=== PATIENT | female | born 1995 | race Caucasian/White ===

== ENCOUNTER 2020-10-18 17:45 | Emergency (ER) | payer OTHER ==
--- NOTE | 2020-10-18 17:51 | ED ---
General Adult HPI - General Stated complaint: [facility] - needlestick Time Seen by Provider: 10/18/20 17:47 Source: patient, RN notes reviewed Mode of arrival: ambulatory Limitations: no limitations - History of Present Illness Initial comments: This is a 25-year-old female presents emergency Department chief complaint of accidental needlestick. 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 Patient accidentally poked her left hand index finger. Her tetanus is up-to-date. There is moderate amount of blood. Patient did wash her hand. Patient has no other complaints is no reported history of the patient having HIV or hepatitis. Review of Systems ROS Statement: Those systems with pertinent positive or pertinent negative responses have been documented in the HPI. ROS Other: All systems not noted in ROS Statement are negative. General Exam General appearance: alert, in no apparent distress Head exam: Present: atraumatic, normocephalic, normal inspection Respiratory exam: Present: normal lung sounds bilaterally. Absent: respiratory distress, wheezes, rales, rhonchi, stridor Cardiovascular Exam: Present: regular rate, normal rhythm, normal heart sounds. Absent: systolic murmur, diastolic murmur, rubs, gallop, clicks Extremities exam: Present: other (Small puncture wound left hand index finger) Medical Decision Making - Medical Decision Making Patient had rapid HIV and hepatitis drawn. Patient has low risk prophylaxis was offered patient declined. Disposition Clinical Impression: Needlestick injury accident Disposition: HOME SELF-CARE Condition: Stable Instructions (If sedation given, give patient instructions): Needle Stick Injuries (ED) Additional Instructions: Please return to the Emergency Department if symptoms worsen or any other concerns. Is patient prescribed a controlled substance at d/c from ED?: No Referrals: Nonstaff,Physician [Primary Care Provider] - 1-2 days Time of Disposition: 17:51
[2020-10-18 18:09] VITALS: BP 149/87; PULSE 118; RESP 19; TEMP 98
== END 2020-10-18 18:30 | disposition home or self-care (01) ==
LOC: EC 17:45
DX: Z77.21 Contact with and (suspected) exposure to potentially hazardous body fluids (principal)
CPT/HCPCS: 99283